=== PATIENT | male | born 1995 | race Caucasian/White ===

== ENCOUNTER 2017-10-19 01:42 | Emergency (ER) | payer SELFPAY ==
[~2017-10-19] VITALS: Ht 175.3 cm; Wt 62.5 kg
[2017-10-19] MEDS ORDERED: MAALOX/HYOSCYAMINE/LIDOCAINE 45 ML BTL ONE (02:45)
[2017-10-19 02:55] LABS: BASOPHILS # (AUTO) 0.05 x10^3/uL (0-0.1); BASOPHILS % (AUTO) 0 % (0-1); EOSINOPHILS # (AUTO) 0.06 x10^3/uL (0-0.4); EOSINOPHILS % (AUTO) 1 % (1-7); LYMPHOCYTES # (AUTO) 1.43 x10^3/uL (1-3.4); LYMPHOCYTES % (AUTO) 12 % (22-44); MD NO; MEAN CORPUSCULAR HEMOGLOBIN 28.8 pg (27.5-34.5); MEAN CORPUSCULAR HGB CONC 33.5 g/dL (33.2-36.2); MEAN CORPUSCULAR VOLUME 86.1 fL (81-97); MEAN PLATELET VOLUME 7.3 fL (7.4-10.4); MONOCYTES % (AUTO) 5 % (2-9); NEUTROPHILS # (AUTO) 10.24 x10^3/uL (1.8-6.8); NEUTROPHILS % (AUTO) 83 % (42-75); PLATELET COUNT 298 x10^3/uL (130-400); RED BLOOD COUNT 4.98 x10^6/uL (4.38-5.82); RED CELL DISTRIBUTION WIDTH 14.1 % (9.4-14.8)
[2017-10-19] MEDS ORDERED: MAALOX/HYOSCYAMINE/LIDOCAINE 45 ML BTL PO ONE (03:00)
[2017-10-19 03:06] LABS: ALANINE AMINOTRANSFERASE 39 U/L (12-78); ANION GAP 8 mmol/L (5-15); CALCIUM 8.9 mg/dL (8.5-10.1); CHLORIDE 103 mmol/L (98-107); CREATININE 0.78 mg/dL (0.7-1.3)
[2017-10-19 03:06] LABS: MICROSCOPIC AUTO
[2017-10-19 03:09] LABS: ALKALINE PHOSPHATASE 87 U/L (45-117); BILIRUBIN,TOTAL 0.7 mg/dL (0.2-1.0); TOTAL PROTEIN 7.7 g/dL (6.4-8.2)
[2017-10-19 03:09] LABS: CULTURE INDICATED? NO
[2017-10-19 05:00] VITALS: BP 104/48
== END 2017-10-19 05:08 | disposition home or self-care (01) ==
LOC: ED 04:50
DX: R10.13 Epigastric pain (principal); E16.2 Hypoglycemia, unspecified
CPT/HCPCS: 36415; 80053; 81001; 82962; 83690; 85025; 93005; 99285

== ENCOUNTER 2019-01-21 23:31 | Emergency (ER) | payer SELFPAY ==
[~2019-01-21] VITALS: Ht 175.3 cm; Wt 64.0 kg
[2019-01-21] MEDS ORDERED: MAALOX/HYOSCYAMINE/LIDOCAINE 45 ML BTL ONE (23:58)
[2019-01-21] MEDS ORDERED: ONDANSETRON 2MG/ML, 2ML ONE (23:58)
[2019-01-21] MEDS ORDERED: MORPHINE SULFATE 4 MG/ML, 1ML ONE (23:58)
[2019-01-22] MEDS ORDERED: MAALOX/HYOSCYAMINE/LIDOCAINE 45 ML BTL PO ONE
[2019-01-22] MEDS ORDERED: SODIUM CHLORIDE FLUSH 10ML SYR IVF ONE
[2019-01-22] MEDS ORDERED: MORPHINE SULFATE 4 MG/ML, 1ML IVPush PRN
[2019-01-22] MEDS ORDERED: ONDANSETRON 2MG/ML, 2ML IVPush ONE
--- NOTE | 2019-01-22 00:01 | NUR ---
FIRST CONTACT WITH PT. PT REPORTS 9/10 CHEST PAIN WITH NAUSEA THAT STARTED ONE HOUR AGO. PT STATES PAIN WOKE HIM UP FROM SLEEP. PT REPORTS PAIN SQUEEZING. DENIES ANY RADIATION. ALL MONITORS IN PLACE. CALL LIGHT WITHIN REACH. PA/EDMD AT BEDSIDE TO ASSESS.
--- NOTE | 2019-01-22 00:05 | NUR ---
PT MEDICATED PER EMAR. PT TOLERATED WELL. PT'S AOX4. RESPS EVEN AND UNLABORED.
[2019-01-22 00:22] LABS: BASOPHILS # (AUTO) 0.07 x10^3/uL (0-0.1); BASOPHILS % (AUTO) 1 % (0-1); EOSINOPHILS # (AUTO) 0.17 x10^3/uL (0-0.4); EOSINOPHILS % (AUTO) 3 % (1-7); LYMPHOCYTES # (AUTO) 2.81 x10^3/uL (1-3.4); LYMPHOCYTES % (AUTO) 43 % (22-44); MD NO; MEAN CORPUSCULAR HEMOGLOBIN 28.7 pg (27.5-34.5); MEAN CORPUSCULAR HGB CONC 32.7 g/dL (33.2-36.2); MEAN CORPUSCULAR VOLUME 87.6 fL (81-97); MEAN PLATELET VOLUME 7.6 fL (7.4-10.4); MONOCYTES # (AUTO) 0.43 x10^3/uL (0.2-0.8); MONOCYTES % (AUTO) 7 % (2-9); NEUTROPHILS # (AUTO) 3.06 x10^3/uL (1.8-6.8); NEUTROPHILS % (AUTO) 47 % (42-75); PLATELET COUNT 260 x10^3/uL (130-400); RED BLOOD COUNT 4.48 x10^6/uL (4.38-5.82); RED CELL DISTRIBUTION WIDTH 14.6 % (9.4-14.8)
[2019-01-22 00:28] LABS: ALANINE AMINOTRANSFERASE 30 U/L (12-78); ALBUMIN 3.5 g/dL (3.4-5.0); ANION GAP 7 mmol/L (5-15); CALCIUM 8.5 mg/dL (8.5-10.1); CHLORIDE 110 mmol/L (98-107); CREATININE 1.03 mg/dL (0.7-1.3)
[2019-01-22 00:33] LABS: ALKALINE PHOSPHATASE 79 U/L (45-117); BILIRUBIN,TOTAL 0.1 mg/dL (0.2-1.0); TOTAL PROTEIN 6.7 g/dL (6.4-8.2); TROPONIN I < 0.015 ng/mL (0.000-0.045)
[2019-01-22 00:55] VITALS: BP 114/60
--- NOTE | 2019-01-22 00:57 | NUR ---
PT'S PAIN LEVEL IS 0/10 AT THIS TIME. PT RESTING IN GURNEY. RESPS EVEN AND UNLABORED. FAMILY AT BEDSIDE.
--- NOTE | 2019-01-22 01:09 | NUR ---
PT GIVEN DC INSTRUCTIONS AND SCRIPTS. PT EDUCATED REGARDING DC MEDICATIONS. RESPS EVEN AND UNLABORED. NO ACUTE DISTRESS AT DC.
== END 2019-01-22 01:09 | disposition home or self-care (01) ==
LOC: ED 01-22 00:17
DX: K29.00 Acute gastritis without bleeding (principal)
CPT/HCPCS: 36415; 71045; 80053; 83690; 84484; 85025; 93005; 96374; 96375; 99284; J2270; J2405